=== PATIENT | female | born 1985 | race Caucasian/White ===

== ENCOUNTER → 2021-07-30 | Outpatient (REF) ==
--- NOTE | 2021-07-30 16:03 | REP ---
INDICATION: DDD COMPARISON: None. TECHNIQUE: AP, lateral, and open-mouth views. FINDINGS: Alignment is maintained. There is no evidence for acute fracture / compression injury or subluxation. No significant degenerative changes are appreciated. Open mouth view demonstrates normal C1-C2 articulation and odontoid process. IMPRESSION: Normal cervical spine series. <Electronically signed by Armaan Pruett > 07/30/21 1600
--- NOTE | 2021-07-30 16:04 | REP ---
INDICATION: DDD COMPARISON: None. TECHNIQUE: AP, lateral, coned-down views of the lumbar spine. FINDINGS: Three views of the lumbosacral spine demonstrate satisfactory alignment and lordosis without acute fracture / compression injury or subluxation. Mild endplate sclerosis and minimal disc space narrowing at L4-5 and L5-S1 suggested. IMPRESSION: 1. No acute fracture / compression injury or subluxation. 2. Mild degenerative changes at L4-5 and L5-S1. <Electronically signed by Armaan Pruett > 07/30/21 [id number]
== END ==
LOC: M PLAIMG 14:45
PROVIDERS: ATTEND Internal Medicine
DX: M54.50 Low back pain, unspecified (principal)